=== PATIENT | male | born 1965 | race African-American/Black ===

== ENCOUNTER 2017-07-06 12:09 | Inpatient (IN) | payer OTHER ==
[~2017-07-06] VITALS: Ht 175.3 cm; Wt 113.8 kg
[2017-07-06 13:27] LABS: CALCIUM 9.2 mg/dL (8.5-10.1); CARBON DIOXIDE 26.4 mmol/L (21-32); CREATININE SERUM 1.9 mg/dL (0.7-1.3); POTASSIUM SERUM 5.3 mmol/L (3.5-5.1)
[2017-07-06 13:39] LABS: ALBUMIN 3.9 g/dL (3.4-5.0); BILIRUBIN TOTAL 0.23 mg/dL (0.20-1.00); TOTAL PROTEIN, SERUM 8.5 g/dL (6.4-8.2)
[2017-07-06 13:40] LABS: BASOPHIL % 0.2 % (0-2); PLATELET COUNT 207 x10^3mcL (130-400); RED CELL DISTRIBUTION WIDTH 15.6 % (11.5-14.5)
[2017-07-06] MEDS ORDERED: GLUCOPHAGE500 MG PO (14:20)
[2017-07-06] MEDS ORDERED: NOR10 PO (14:21)
[2017-07-06] MEDS ORDERED: ZESTRIL10 MG PO (14:21)
[2017-07-06] MEDS ORDERED: HYDROCHLOROTHIA25 MG PO (14:21)
[2017-07-06] MEDS ORDERED: LIPITOR40 MG PO (14:22)
[2017-07-06] MEDS ORDERED: GOOD SENSE ASP325 MG PO (14:22)
[2017-07-06] MEDS ORDERED: BYETTA10 MCG/0.0 SQ (14:23)
[2017-07-06] MEDS ORDERED: BASAGLAR SQ (14:24)
[2017-07-06 14:50] LABS: CHOLESTEROL/HDL RATIO 3.1; MAGNESIUM 2.2 mg/dL (1.8-2.4); PHOSPHOROUS 1.8 mg/dL (2.5-4.9)
[2017-07-06 15:23] VITALS: BP 170/91
[2017-07-06 17:13] LABS: microscopic required? YES; urine erythrocyte NEGATIVE (NEGATIVE)
[2017-07-06 17:21] LABS: AMPHETAMINE QUAL UR NONE DETECTED (NEG <=1000)
[2017-07-06 19:00] VITALS: BP 144/82
[2017-07-06 21:43] VITALS: BP 123/78
[2017-07-07 05:31] VITALS: BP 134/71
[2017-07-07 09:23] LABS: CALCIUM 8.2 mg/dL (8.5-10.1); CARBON DIOXIDE 24.9 mmol/L (21-32); CREATININE SERUM 1.6 mg/dL (0.7-1.3); PHOSPHOROUS 2.5 mg/dL (2.5-4.9); POTASSIUM SERUM 4.1 mmol/L (3.5-5.1)
[2017-07-07 09:41] LABS: BASOPHIL % 0.6 % (0-2); PLATELET COUNT 185 x10^3mcL (130-400)
[2017-07-07 09:50] VITALS: BP 129/72
[2017-07-07 12:25] VITALS: BP 141/77
[2017-07-07 17:24] VITALS: BP 130/75
[2017-07-07 21:13] VITALS: BP 137/71
[2017-07-08 06:13] VITALS: BP 146/76
[2017-07-08 06:54] LABS: BASOPHIL % 0.6 % (0-2)
[2017-07-08 07:05] LABS: PLATELET COUNT 181 x10^3mcL (130-400); RED CELL DISTRIBUTION WIDTH 15.2 % (11.5-14.5)
[2017-07-08 07:12] LABS: CALCIUM 8.6 mg/dL (8.5-10.1); CARBON DIOXIDE 24.3 mmol/L (21-32); CREATININE SERUM 1.5 mg/dL (0.7-1.3); POTASSIUM SERUM 3.9 mmol/L (3.5-5.1)
[2017-07-08 09:44] VITALS: BP 139/60
[2017-07-08 10:11] VITALS: BP 139/60
== END 2017-07-08 11:44 | disposition home or self-care (01) | DRG 282 ==
LOC: ED 12:09 → DU 14:07 → MU 07-07 17:38
PROVIDERS: Emergency Medicine; Family Medicine Sports Medicine; ADMIT Student in an Organized Health Care Education/Training Program
DX: K85.90 Acute pancreatitis without necrosis or infection, unspecified (principal); N17.0 Acute kidney failure with tubular necrosis; K56.7 Ileus, unspecified; E11.65 Type 2 diabetes mellitus with hyperglycemia; E11.51 Type 2 diabetes mellitus with diabetic peripheral angiopathy without gangrene; E83.39 Other disorders of phosphorus metabolism; E87.5 Hyperkalemia; I10 Essential (primary) hypertension; E78.5 Hyperlipidemia, unspecified; E66.9 Obesity, unspecified; Z68.37 Body mass index [BMI] 37.0-37.9, adult; Z79.82 Long term (current) use of aspirin; Z79.84 Long term (current) use of oral hypoglycemic drugs
CPT/HCPCS: 82962; 83880; J2405; J3490; J7030; J7042; Q0092

== ENCOUNTER 2017-08-15 16:34 | Emergency (ER) | payer OTHER ==
[~2017-08-15] VITALS: Ht 175.3 cm; Wt 116.6 kg
[~2017-08-15 16:34] MED LIST: BASAGLAR SQ; BYETTA10 MCG/0.0 SQ; GLUCOPHAGE500 MG PO; GOOD SENSE ASP325 MG PO; HYDROCHLOROTHIA25 MG PO; LIPITOR40 MG PO; NOR10 PO; ZESTRIL10 MG PO
[2017-08-15 16:41] VITALS: Ht 175.3 cm; Wt 116.6 kg
[2017-08-15 19:08] VITALS: BP 151/82
== END 2017-08-15 19:08 | disposition home or self-care (01) ==
LOC: ED 16:34
DX: R60.0 Localized edema (principal); I10 Essential (primary) hypertension; E11.9 Type 2 diabetes mellitus without complications
CPT/HCPCS: Q0092

== ENCOUNTER 2017-10-23 10:58 | Emergency (ER) | payer OTHER ==
[~2017-10-23] VITALS: Ht 175.3 cm; Wt 114.0 kg
[2017-10-23 11:00] VITALS: Ht 175.3 cm; Wt 114.0 kg
[2017-10-23 11:43] LABS: PLATELET COUNT 235 x10^3mcL (130-400)
[2017-10-23 11:45] LABS: BASOPHIL % 0 % (0-2); RED CELL DISTRIBUTION WIDTH 16.7 % (11.5-14.5)
[2017-10-23 11:57] LABS: CALCIUM 8.5 mg/dL (8.5-10.1); CARBON DIOXIDE 24.7 mmol/L (21-32); CREATININE SERUM 1.5 mg/dL (0.7-1.3); POTASSIUM SERUM 4.3 mmol/L (3.5-5.1)
[2017-10-23 12:01] LABS: ALBUMIN 3.8 g/dL (3.4-5.0); BILIRUBIN TOTAL 0.2 mg/dL (0.20-1.00)
[2017-10-23 12:03] LABS: TOTAL PROTEIN, SERUM 8.3 g/dL (6.4-8.2)
[2017-10-23 14:44] LABS: AMPHETAMINE QUAL UR NONE DETECTED (NEG <=1000)
[2017-10-23 15:28] VITALS: BP 147/87
== END 2017-10-23 15:28 | disposition home or self-care (01) ==
LOC: ED 10:58
PROVIDERS: Emergency Medicine
DX: K29.00 Acute gastritis without bleeding (principal); I10 Essential (primary) hypertension; E11.9 Type 2 diabetes mellitus without complications; Z87.19 Personal history of other diseases of the digestive system
CPT/HCPCS: 83880; J2405; J3490

== ENCOUNTER 2018-03-19 08:12 | Inpatient (IN) | payer OTHER ==
[~2018-03-19] VITALS: Ht 177.8 cm; Wt 125.8 kg
[2018-03-19 09:41] LABS: BASOPHIL % 0.3 % (0-2); PLATELET COUNT 229 x10^3mcL (130-400)
[2018-03-19 09:42] LABS: RED CELL DISTRIBUTION WIDTH 16.5 % (11.5-14.5)
[2018-03-19 10:00] LABS: CARBON DIOXIDE 20.9 mmol/L (21-32); CREATININE SERUM 1.7 mg/dL (0.7-1.3); POTASSIUM SERUM 3.9 mmol/L (3.5-5.1)
[2018-03-19 10:04] LABS: ALBUMIN 3.8 g/dL (3.4-5.0); BILIRUBIN TOTAL 0.42 mg/dL (0.20-1.00); MAGNESIUM 1.8 mg/dL (1.8-2.4); PHOSPHOROUS 1.7 mg/dL (2.5-4.9)
[2018-03-19 10:08] LABS: TOTAL PROTEIN, SERUM 8.3 g/dL (6.4-8.2)
[2018-03-19 15:05] VITALS: BP 197/100
[2018-03-19 17:24] VITALS: BP 187/93
[2018-03-19 17:40] LABS: TOTAL IRON BINDING CAPACITY 321 ug/dL (250-450)
[2018-03-19 17:44] LABS: IRON 28 ug/dL (65-170)
[2018-03-19 18:11] VITALS: BP 155/69
[2018-03-19 20:59] VITALS: BP 144/72
[2018-03-19 21:05] LABS: microscopic required? YES; urine erythrocyte TRACE (NEGATIVE)
[2018-03-19 21:39] LABS: AMPHETAMINE QUAL UR NONE DETECTED (See below)
[2018-03-20] VITALS (9 sets, daily range): BP systolic 166–197; BP diastolic 85–100
[2018-03-20 07:50] LABS: BASOPHIL % 0.1 % (0-2); PLATELET COUNT 193 x10^3mcL (130-400)
[2018-03-20 07:55] LABS: RED CELL DISTRIBUTION WIDTH 16.7 % (11.5-14.5); rbc morphology (normal/abnorm) ABNORMAL (NORMAL)
[2018-03-20 11:06] LABS: CALCIUM 7.4 mg/dL (8.5-10.1); CARBON DIOXIDE 22.8 mmol/L (21-32); CREATININE SERUM 1.5 mg/dL (0.7-1.3); MAGNESIUM 1.9 mg/dL (1.8-2.4); PHOSPHOROUS 3.2 mg/dL (2.5-4.9); POTASSIUM SERUM 3.6 mmol/L (3.5-5.1)
[2018-03-21] VITALS (8 sets, daily range): BP systolic 113–187; BP diastolic 70–95
[2018-03-21 07:04] LABS: BASOPHIL % 0.3 % (0-2); PLATELET COUNT 199 x10^3mcL (130-400)
[2018-03-21 07:08] LABS: RED CELL DISTRIBUTION WIDTH 16.5 % (11.5-14.5)
[2018-03-21 07:19] LABS: BILIRUBIN TOTAL 0.5 mg/dL (0.20-1.00); CALCIUM 7.4 mg/dL (8.5-10.1); CARBON DIOXIDE 22.8 mmol/L (21-32); CREATININE SERUM 1.5 mg/dL (0.7-1.3); MAGNESIUM 1.9 mg/dL (1.8-2.4); PHOSPHOROUS 2.2 mg/dL (2.5-4.9); POTASSIUM SERUM 3.6 mmol/L (3.5-5.1); TOTAL PROTEIN, SERUM 7.4 g/dL (6.4-8.2)
[2018-03-22 05:23] VITALS: BP 111/58
[2018-03-22 07:24] LABS: MAGNESIUM 1.9 mg/dL (1.8-2.4); PHOSPHOROUS 2.6 mg/dL (2.5-4.9); PLATELET COUNT 181 x10^3mcL (130-400)
[2018-03-22 07:30] LABS: RED CELL DISTRIBUTION WIDTH 16.4 % (11.5-14.5)
[2018-03-22 07:35] LABS: BILIRUBIN TOTAL 0.5 mg/dL (0.20-1.00); CALCIUM 6.7 mg/dL (8.5-10.1); CARBON DIOXIDE 23.8 mmol/L (21-32); CREATININE SERUM 1.9 mg/dL (0.7-1.3); POTASSIUM SERUM 4.2 mmol/L (3.5-5.1)
[2018-03-22 07:37] LABS: ALBUMIN 2.3 g/dL (3.4-5.0)
[2018-03-22 08:35] LABS: BAND NEUTROPHIL 0 % (0-10); BASOPHIL 0 % (0-2); MONOCYTE 4 % (0-7); SEGMENTED NEUTROPHILS 87 % (37-75)
[2018-03-22 08:37] LABS: acanthocyte (spur cell) 1+; burr cell (echinocyte) 1+; rbc morphology (normal/abnorm) ABNORMAL (NORMAL)
[2018-03-22 09:55] VITALS: BP 136/74
[2018-03-22 13:34] VITALS: BP 140/78
[2018-03-22 18:15] VITALS: BP 154/73
[2018-03-22 20:37] VITALS: BP 145/70
[2018-03-23 05:23] VITALS: BP 151/76
[2018-03-23 06:23] LABS: CARBON DIOXIDE 24.6 mmol/L (21-32); CREATININE SERUM 1.7 mg/dL (0.7-1.3); MAGNESIUM 2.2 mg/dL (1.8-2.4); PHOSPHOROUS 2.4 mg/dL (2.5-4.9); POTASSIUM SERUM 3.6 mmol/L (3.5-5.1)
[2018-03-23 06:26] LABS: BASOPHIL % 0.1 % (0-2); PLATELET COUNT 174 x10^3mcL (130-400)
[2018-03-23 06:42] LABS: RED CELL DISTRIBUTION WIDTH 16.5 % (11.5-14.5)
[2018-03-23 08:00] VITALS: BP 157/80
[2018-03-23 11:00] LABS: BILIRUBIN DIRECT 0.1 mg/dL (0.0-0.2); BILIRUBIN TOTAL 0.3 mg/dL (0.20-1.00); TOTAL PROTEIN, SERUM 6.4 g/dL (6.4-8.2)
[2018-03-23 12:10] VITALS: BP 150/85
[2018-03-23 17:24] VITALS: BP 164/79
[2018-03-23 18:08] VITALS: BP 140/82
[2018-03-23 20:52] VITALS: BP 139/68
[2018-03-24 05:55] VITALS: BP 143/66
[2018-03-24 06:36] LABS: CALCIUM 7.2 mg/dL (8.5-10.1); CARBON DIOXIDE 24.6 mmol/L (21-32); CREATININE SERUM 1.5 mg/dL (0.7-1.3); MAGNESIUM 2.1 mg/dL (1.8-2.4); PHOSPHOROUS 2.4 mg/dL (2.5-4.9); POTASSIUM SERUM 3.5 mmol/L (3.5-5.1)
[2018-03-24 06:44] LABS: BASOPHIL % 0.2 % (0-2); PLATELET COUNT 212 x10^3mcL (130-400)
[2018-03-24 08:46] LABS: RED CELL DISTRIBUTION WIDTH 16.5 % (11.5-14.5)
[2018-03-24 09:01] VITALS: BP 168/80
[2018-03-24 15:40] VITALS: BP 155/81
[2018-03-24] MEDS ORDERED: LEVAQUIN500 M1 PO (16:47)
[2018-03-24] MEDS ORDERED: FLA500 PO (16:47)
[2018-03-24 16:51] VITALS: BP 155/81
[2018-03-24 17:35] VITALS: BP 155/76
== END 2018-03-24 19:55 | disposition home or self-care (01) | DRG 263 ==
LOC: ED 08:12 → DU 12:48 → MU 12:48 → DU 14:57
PROVIDERS: Emergency Medicine; Internal Medicine; Internal Medicine Gastroenterology; Surgery
PROC: 0FT44ZZ Resection of Gallbladder, Percutaneous Endoscopic Approach (ICD-10-PCS; principal; 2018-03-21 11:00)
PROC: 0DB68ZX Excision of Stomach, Via Natural or Artificial Opening Endoscopic, Diagnostic (ICD-10-PCS; 2018-03-21 11:00)
DX: K80.00 Calculus of gallbladder with acute cholecystitis without obstruction (principal); N17.0 Acute kidney failure with tubular necrosis; E43 Unspecified severe protein-calorie malnutrition; E11.43 Type 2 diabetes mellitus with diabetic autonomic (poly)neuropathy; E11.22 Type 2 diabetes mellitus with diabetic chronic kidney disease; K31.84 Gastroparesis; D62 Acute posthemorrhagic anemia; E11.65 Type 2 diabetes mellitus with hyperglycemia; E86.0 Dehydration; E87.1 Hypo-osmolality and hyponatremia; I12.9 Hypertensive chronic kidney disease with stage 1 through stage 4 chronic kidney disease, or unspecified chronic kidney disease; N18.9 Chronic kidney disease, unspecified; E66.9 Obesity, unspecified; Z68.38 Body mass index [BMI] 38.0-38.9, adult; Z91.19 Patient's noncompliance with other medical treatment and regimen; Z79.84 Long term (current) use of oral hypoglycemic drugs
CPT/HCPCS: 43235; 78226; A9537; C9113; J0330; J0696; J1170; J1200; J1610; J1644; J1650; J1940; J2250; J2270; J2310; J2405; J2543; J2550; J2704; J2710; J2765; J3010; J3490; J7030; J7120; Q0092; Q9967

== ENCOUNTER 2018-08-28 09:41 | Emergency (ER) | payer OTHER ==
[~2018-08-28] VITALS: Ht 177.8 cm; Wt 124.7 kg
[~2018-08-28 09:41] MED LIST changes: +FLA500 PO; +LEVAQUIN500 M1 PO
[2018-08-28 09:44] VITALS: Ht 177.8 cm; Wt 124.7 kg
[2018-08-28 11:02] VITALS: BP 187/97
== END 2018-08-28 10:58 | disposition home or self-care (01) ==
LOC: ED 09:41
DX: S06.0X0A Concussion without loss of consciousness, initial encounter (principal); I10 Essential (primary) hypertension; E11.9 Type 2 diabetes mellitus without complications; W18.39XA Other fall on same level, initial encounter; Y93.89 Activity, other specified; Y92.89 Other specified places as the place of occurrence of the external cause; Y99.8 Other external cause status

== ENCOUNTER 2019-07-10 08:40 | Emergency (ER) | payer MEDICAID ==
[~2019-07-10] VITALS: Ht 175.3 cm; Wt 129.7 kg
[2019-07-10 08:43] VITALS: Ht 175.3 cm; Wt 129.7 kg
[2019-07-10 10:48] VITALS: BP 166/90
== END 2019-07-10 10:48 | disposition home or self-care (01) ==
LOC: ED 08:40
DX: H53.9 Unspecified visual disturbance (principal); I10 Essential (primary) hypertension; E11.9 Type 2 diabetes mellitus without complications

== ENCOUNTER 2020-03-20 14:33 | Emergency (ER) | payer MEDICAID, SELFPAY ==
[~2020-03-20] VITALS: Ht 175.3 cm; Wt 127.0 kg
[2020-03-20 14:35] VITALS: Ht 175.3 cm; Wt 127.0 kg
[2020-03-20 16:41] VITALS: BP 130/69
== END 2020-03-20 17:06 | disposition home or self-care (01) ==
LOC: ED 14:33
DX: U07.1 COVID-19 (principal); B34.9 Viral infection, unspecified; I10 Essential (primary) hypertension; E11.9 Type 2 diabetes mellitus without complications
CPT/HCPCS: U0003-CS